=== PATIENT | female | born 1955 | race Caucasian/White ===

== ENCOUNTER → 2024-04-03 | Outpatient (CLI) | payer OTHER, SELFPAY ==
--- NOTE | 2024-04-03 08:27 | XR_ITS ---
EXAMINATION: Cervical spine, 5 views Technique: Cervical spine AP, AP odontoid, lateral, bilateral obliques, 5 views Exam date and time: April 03, 2024 0834 hours INDICATIONS: Neck pain radiating to the left hand 3 weeks FINDINGS: Reversal normal cervical lordosis No cervical fracture Minimal anterolisthesis C4 on C5 Advanced degenerative disc disease C6-C7 with mild bilateral neural foraminal stenosis at this level Intact odontoid IMPRESSION: Advanced degenerative disc disease C6-C7
== END | disposition home or self-care (01) ==
LOC: CDIM 08:22
PROVIDERS: Referring Provider Physician Assistant; Visit Provider Physician Assistant
DX: M50.323 Other cervical disc degeneration at C6-C7 level (principal)
CPT/HCPCS: 72050

== ENCOUNTER → 2024-06-08 | Outpatient (CLI) | payer OTHER, SELFPAY ==
--- NOTE | 2024-06-08 14:15 | XR_ITS ---
Examination: MRI cervical spine without intravenous contrast Date and time of exam: June 08, 1999 2551 hours Indications: Neck pain radiating down the arms burning sensation in the extremities 2 no evidence Technique: Multiple axial and sagittal sections of the cervical spine to been obtained. T2 weighted sagittal sections, TR 3, 270, TE 117 T1-weighted sagittal sections, TR 500, TE 11 T1-weighted axial sections, TR 607, TE 12, axial sections TR 18, TE 27 and T2 weighted transverse sections, TR 3920, TE 122. Findings: Straightening normal cervical lordosis No cervical fracture Mild to moderate disc narrowing C5-C6 Diffuse cervical disc desiccation No localized enlargement cervical cord C2-C3 no disc protrusion C3-C4 moderate left neural foraminal stenosis C4-C5 advanced right neural foraminal stenosis C5-C6 severe spinal stenosis, 6 mm central left paracentral disc bulge severely indenting the ventral left margin of the cervical cord with advanced mild likely ischemia in the cervical cord C6-C7 3 mm central subarticular osteophyte disc complex, contiguous with the anterior margin of the cervical cord moderate bilateral neural foraminal stenosis Impression: Severe acquired spinal stenosis C5-C6 significantly impinging upon the cervical cord as above
== END | disposition home or self-care (01) ==
LOC: SMRI 13:52
PROVIDERS: Referring Provider Physician Assistant; Visit Provider Physician Assistant
DX: M48.02 Spinal stenosis, cervical region (principal)
CPT/HCPCS: 72141

== ENCOUNTER → 2024-08-24 | Outpatient (CLI) | payer MEDICARE, OTHER, SELFPAY ==
--- NOTE | 2024-08-24 | XR_ITS ---
Examination: Cervical spine 8 views TECHNIQUE: AP, lateral, coned AP odontoid, RALPH, CHINESE, standing lateral flexion, standing lateral extension cervical spine 8 views Date and time: August 24, 2024 1517 hours INDICATIONS: Neck pain radiating down both arms 3 months. FINDINGS: Straightening normal cervical lordosis Grade 1 anterolisthesis C4 on C5 Advanced degenerative disc disease C6-C7 Reduced range of motion between flexion and extension Moderate bilateral neural foraminal stenosis C3-C4, C6-C7 IMPRESSION: Advanced degenerative disc disease C6-C7 No cervical fracture
--- NOTE | 2024-08-24 12:00 | XR_ITS ---
Examination: CT cervical spine without contrast 2-D sagittal reconstructions 2-D coronal reconstructions 3-D reconstructions. Exam date and time:August 24, 2024 1223 hours INDICATIONS: Neck pain 4 months CTDI:vol (mGy) 14 DLP: (mGycm) 283 Technique: Multiple 2 mm axial sections of the cervical spine have been obtained. The coronal and sagittal reconstructions have been obtained. 3-D reconstructions have been obtained. Low dose protocols were performed. One or more of the following dose reduction techniques were used; automated exposure control, adjustment of the mA and/or KV according to patient size, use of iterative reconstruction technique. Findings: Axial sections demonstrate intact base of the skull. C1 exhibit satisfactory relationship to the odontoid. No acute cervical vertebral body fracture seen. Alignment posterior spinous processes satisfactory. Reversal normal cervical lordosis Moderate degenerative disc disease C5-C6 C6-C7 C3-C4 advanced left neural foraminal stenosis C4-C5 advanced right neural foraminal stenosis C6-C7 moderate bilateral neural foraminal stenosis Impression: No acute cervical fracture. Moderate degenerative disc disease C5-C6, C6-C7 C3-C4 advanced left no foraminal stenosis C4-C5 advanced right neural foraminal stenosis C6-C7 moderate bilateral neural foraminal stenosis
== END | disposition home or self-care (01) ==
PROVIDERS: PCP Physician Assistant; Referring Provider Neurological Surgery; Visit Provider Neurological Surgery
DX: M50.322 Other cervical disc degeneration at C5-C6 level (principal); M48.02 Spinal stenosis, cervical region
CPT/HCPCS: 72052; 72125

== ENCOUNTER → 2024-10-18 | Outpatient (CLI) | payer MEDICARE, OTHER, SELFPAY ==
--- NOTE | 2024-10-18 | XR_ITS ---
Examination: Cervical spine 3 views TECHNIQUE: AP lateral coned AP odontoid cervical spine 3 views Date and time: October 18, 2024, 0734 hours Comparison August 24, 2024 INDICATIONS: Postop cervical spine surgery September 12, 2024 FINDINGS: Status post cervical fusion C4-C7 with anatomic alignment Satisfactory dilatation orthopedic hardware No cervical fracture Intact odontoid IMPRESSION: Status post cervical fusion C4-C7 with anatomic alignment
== END | disposition home or self-care (01) ==
LOC: CDIM 06:55
PROVIDERS: PCP Physician Assistant; Referring Provider Neurological Surgery; Visit Provider Neurological Surgery
DX: M43.22 Fusion of spine, cervical region (principal)
CPT/HCPCS: 72040

== ENCOUNTER → 2025-01-23 | Outpatient (CLI) | payer MEDICARE, OTHER, SELFPAY ==
--- NOTE | 2025-01-23 | XR_ITS ---
EXAMINATION: Cervical spine 2 views TECHNIQUE: AP lateral cervical spine 2 views Date and time: January 23, 2025, 0729 hours, comparison October 18, 2024 INDICATIONS: Injury to the cervical spine 11 months ago, status post cervical spine surgery September 17, 2024 FINDINGS: Adequate alignment cervical vertebral bodies. No cervical fracture. Intact odontoid. Cervical fusion C4-C7 with anatomic alignment Minimal prevertebral soft tissue prominence IMPRESSION: Status post cervical fusion C4-C7 with anatomic alignment
== END | disposition home or self-care (01) ==
LOC: CDIM 06:46
PROVIDERS: PCP Physician Assistant; Referring Provider Neurological Surgery; Visit Provider Neurological Surgery
DX: M43.22 Fusion of spine, cervical region (principal); Z98.890 Other specified postprocedural states; S14.109S Unspecified injury at unspecified level of cervical spinal cord, sequela; X58.XXXS Exposure to other specified factors, sequela
CPT/HCPCS: 72040

== ENCOUNTER → 2025-03-22 | Outpatient (CLI) | payer MEDICARE, OTHER, SELFPAY ==
--- NOTE | 2025-03-22 | XR_ITS ---
EXAMINATION: Cervical spine 2 views TECHNIQUE: AP lateral cervical spine 2 views Date and time: March 22, 2025, 0722 hours, comparison January 23, 2025 INDICATIONS: Postop surgical spine surgery September 17, 2024 FINDINGS: Cervical fusion C4-C7 with anatomic alignment Minimal prevertebral soft tissue prominence No cervical fracture Intact odontoid IMPRESSION: Cervical fusion C4-C7 with anatomic alignment
== END | disposition home or self-care (01) ==
LOC: CDIM 06:38
PROVIDERS: PCP Physician Assistant; Referring Provider Neurological Surgery; Visit Provider Neurological Surgery
DX: M43.22 Fusion of spine, cervical region (principal); Z98.890 Other specified postprocedural states
CPT/HCPCS: 72040